=== PATIENT | male | born 1960 | race Caucasian/White ===

== ENCOUNTER 2017-01-15 15:06 | Observation (INO) | payer OTHER ==
[~2017-01-15] VITALS: Ht 177.8 cm; Wt 144.2 kg
[~2017-01-15 15:06] MED LIST: ADVAIR 250/501 DISK IH; ATENOLOL50 M1 PO; Aspirin Chewable PO; Bactrim,Septra DS 80 PO; LEVAQUIN750 MG PO; LIDODERM 5% P1 PATCH TD; MOTRIN800 MG PO; MULTI-VIT 55 P1 EACH PO; NAPROXEN500 MG PO; PREVACID30 MG PO; PROVENTIL HFA6.7 GM IH; Prilosec PO; ZESTRIL,PRINIVI10 MG PO; ZITHROMAX Z-PA250 MG PO; ZYRTEC10 M3 PO
[2017-01-15 15:47] LABS: EOSINOPHIL (%) 3.6 % (0-5); EOSINOPHIL COUNT 0.3 K/uL (0-0.3); HEMATOCRIT 41.3 % (38.0-50.0); IMMATURE GRANULOCYTE (%) 0.3 % (0.0-0.7); IMMATURE GRANULOCYTE COUNT 0.2 K/uL; MCH 28.4 PG (29.0-34.0); MCHC 34.4 G/DL (30.0-36.0); MCV 82.6 FL (86-99); MEAN PLAT.VOLUME 10.8 uM^3 (9.0-12.4); MONOCYTE (%) 9.1 % (3-12); MONOCYTE COUNT 0.7 K/uL (0-0.8); NEUTROPHIL (%) 74.1 % (45-76); NEUTROPHIL COUNT 5.8 K/uL (1.8-6.4); PLATELET COUNT 205 K/uL (156-360); RBC DIS.WIDTH-CV 13.9 % (11.8-14.6); RBC DIS.WIDTH-SD 40.6 % (39-53); WHITE BLOOD COUNT 7.8 K/uL (4.1-10.2)
[2017-01-15 15:57] LABS: CHLORIDE 103 mEq/L (99-109); POTASSIUM 4.1 mEq/L (3.7-5.4); SODIUM 139 mEq/L (136-147)
[2017-01-15 15:59] LABS: GLUCOSE 112 mg/dL (70-99)
[2017-01-15 16:00] LABS: ANION GAP 13 MEQ/L (2-14)
[2017-01-15 16:01] LABS: TOTAL BILIRUBIN 0.2 mg/dL (0.0-1.0)
[2017-01-15 16:02] LABS: ALKALINE PHOSPHATASE 69 IU/L (3-129)
[2017-01-15 16:03] LABS: GFR ESTIMATE (CALCULATED) 56 mL/min/
[2017-01-15 16:04] LABS: UREA NITROGEN (BUN) 30 mg/dL (9-23)
[2017-01-15 16:06] LABS: LIPASE 42 U/L (1.0-51.0)
[2017-01-15 18:15] LABS: ADD MIUA? YES; BILIRUBIN NEGATIVE; BLOOD SMALL; COLOR YELLOW ((YELLOW)); GLUCOSE (STRIP) NEGATIVE; KETONES NEGATIVE; LEUKOCYTES NEGATIVE; NITRITE NEGATIVE; PROTEIN (STRIP) NEGATIVE; SPECIFIC GRAVITY 1.016 (1.000-1.030); UROBILINOGEN 0.2 MG/DL (0.2-1.0)
[2017-01-15 18:33] LABS: BACTERIA NONE SEEN /HPF; EPITHELIAL CELLS NONE SEEN /HPF; MUCUS TRACE /LPF; WHITE BLOOD CELLS 0-5 /HPF (0-5)
[2017-01-15] MEDS ORDERED: LISINOPRIL20 MG PO (19:00)
[2017-01-15 19:01] LABS: D-DIMER ELISA 1.59 mg/L FEU (< 0.57)
[2017-01-15] MEDS ORDERED: ATORVASTATIN CA20 MG PO (19:01)
[2017-01-15] MEDS ORDERED: ASPIR 8181 M1 PO (19:01)
[2017-01-15] MEDS ORDERED: PANTOPRAZOLE SO40 MG PO (19:01)
[2017-01-15] MEDS ORDERED: FIBER PO (19:02)
[2017-01-15] MEDS ORDERED: MULTI VITAMIN1 EACH PO (19:03)
[2017-01-15 20:43] LABS: CHLORIDE 107 mEq/L (99-109); POTASSIUM 4.3 mEq/L (3.7-5.4); SODIUM 140 mEq/L (136-147)
[2017-01-15 20:45] LABS: GLUCOSE 94 mg/dL (70-99)
[2017-01-15 20:47] LABS: ANION GAP 11 MEQ/L (2-14)
[2017-01-15 20:49] LABS: GFR ESTIMATE (CALCULATED) > 59 mL/min/
[2017-01-15 20:50] LABS: UREA NITROGEN (BUN) 26 mg/dL (9-23)
[2017-01-15 20:52] LABS: CREATINE KINASE 431 IU/L (1-294)
[2017-01-15] MEDS ORDERED: FIBER THERAPY500 MG PO (23:00)
[2017-01-15] MEDS ORDERED: LIDODERM 5% P1 PATCH TD (23:01)
[2017-01-15 23:47] VITALS: BP 123/63
[2017-01-16 01:09] LABS: TROP-I INTERPRETATION NEGATIVE; TROPONIN-I < 0.01 ng/mL (0.0-0.30)
[2017-01-16 05:56] LABS: TROP-I INTERPRETATION NEGATIVE; TROPONIN-I < 0.01 ng/mL (0.0-0.30)
[2017-01-16 06:15] VITALS: BP 119/69
[2017-01-16 06:18] LABS: HEMATOCRIT 41.3 % (38.0-50.0); MCH 29.3 PG (29.0-34.0); MCHC 34.1 G/DL (30.0-36.0); MCV 85.9 FL (86-99); MEAN PLAT.VOLUME 11.1 uM^3 (9.0-12.4); PLATELET COUNT 173 K/uL (156-360); RBC DIS.WIDTH-CV 14.2 % (11.8-14.6); RBC DIS.WIDTH-SD 44.2 % (39-53); RED BLOOD COUNT 4.81 M/uL (4.00-5.50)
[2017-01-16 06:20] LABS: WHITE BLOOD COUNT 4.8 K/uL (4.1-10.2)
[2017-01-16 07:43] LABS: ALKALINE PHOSPHATASE 59 IU/L (3-129); ANION GAP 7 MEQ/L (2-14); CHLORIDE 102 MEQ/L (99-109); GFR ESTIMATE (CALCULATED) > 59 mL/min/; POTASSIUM 4.4 MEQ/L (3.7-5.4); SAMPLE HEMOLYSIS CHECK 0; SAMPLE ICTERIC CHECK 0; SAMPLE LIPEMIA CHECK 0; SODIUM 137 MEQ/L (136-147); TOTAL BILIRUBIN 0.4 MG/DL (0.0-1.0); UREA NITROGEN (BUN) 17 mg/dL (9-23)
[2017-01-16 07:52] VITALS: BP 124/66
[2017-01-16 07:59] LABS: GLUCOSE 165 mg/dL (70-99)
[2017-01-16 10:53] LABS: CK-MB 2.8 ng/mL (0.0-4.9)
[2017-01-16 11:05] VITALS: BP 125/70
[2017-01-16 11:11] LABS: CREATINE KINASE 386 IU/L (1-294); TOTAL CK 386 IU/L (1-294)
[2017-01-16 12:49] LABS: TROP-I INTERPRETATION NEGATIVE; TROPONIN-I < 0.01 ng/mL (0.0-0.30)
[2017-01-16] MEDS ORDERED: PREDNISONE20 MG PO (15:35)
[2017-01-16] MEDS ORDERED: DOXYCYCLINE HY100 M3 PO (15:35)
== END 2017-01-16 16:05 | disposition home or self-care (01) ==
LOC: EME → EDBD 15:06 → EME 15:06 → EDOF 22:43 → 5WEST 23:32
PROVIDERS: Emergency Medicine; Internal Medicine; Physician Assistant
DX: J44.1 Chronic obstructive pulmonary disease with (acute) exacerbation (principal); J45.909 Unspecified asthma, uncomplicated; K21.9 Gastro-esophageal reflux disease without esophagitis; I12.9 Hypertensive chronic kidney disease with stage 1 through stage 4 chronic kidney disease, or unspecified chronic kidney disease; G47.33 Obstructive sleep apnea (adult) (pediatric); N18.3 Chronic kidney disease, stage 3 (moderate); E78.5 Hyperlipidemia, unspecified
CPT/HCPCS: 71020; 71275; 74176; 74177; 80048 91; 80053; 81003; 82550; 82553; 83605; 83690; 84484; 85025; 85027; 85379; 87040; 93005; 94640; 94640 76; 94760; 94799; 99202; 99281; 99285; G0378; J1644; J2930; J7030

== ENCOUNTER 2017-07-16 13:13 | Observation (INO) | payer OTHER ==
[~2017-07-16] VITALS: Ht 177.8 cm; Wt 140.6 kg
[~2017-07-16 13:13] MED LIST changes: -ADVAIR 250/501 DISK IH; +ADVAIR 500/501 DISK IH; +ASPIR 8181 M1 PO; +ATORVASTATIN CA20 MG PO; +DOXYCYCLINE HY100 M3 PO; +FIBER PO; +FIBER THERAPY500 MG PO; +LISINOPRIL20 MG PO; +MULTI VITAMIN1 EACH PO; +PANTOPRAZOLE SO40 MG PO; +PREDNISONE20 MG PO
[2017-07-16 14:15] LABS: HEMATOCRIT 42.8 % (38.0-50.0); MCH 28.5 PG (29.0-34.0); MCHC 34.1 G/DL (30.0-36.0); MCV 83.6 FL (86-99); MEAN PLAT.VOLUME 10.5 uM^3 (9.0-12.4); PLATELET COUNT 241 K/uL (156-360); RBC DIS.WIDTH-CV 13.2 % (11.8-14.6); RBC DIS.WIDTH-SD 40.4 % (39-53); RED BLOOD COUNT 5.12 M/uL (4.00-5.50); WHITE BLOOD COUNT 11.2 K/uL (4.1-10.2)
[2017-07-16 14:26] LABS: CHLORIDE 104 mEq/L (99-109); POTASSIUM 4.4 mEq/L (3.7-5.4); SODIUM 139 mEq/L (136-147)
[2017-07-16 14:28] LABS: GLUCOSE 92 mg/dL (70-99)
[2017-07-16 14:29] LABS: ANION GAP 12 MEQ/L (2-14)
[2017-07-16 14:32] LABS: GFR ESTIMATE (CALCULATED) 42 mL/min/; UREA NITROGEN (BUN) 19 mg/dL (9-23)
[2017-07-16 14:39] LABS: TROP-I INTERPRETATION NEGATIVE; TROPONIN-I < 0.01 ng/mL (0.0-0.30)
[2017-07-16 14:56] LABS: D-DIMER ELISA < 150.00 ng/mLDDU (<230)
[2017-07-16 15:02] LABS: TOTAL BILIRUBIN 0.5 mg/dL (0.0-1.0)
[2017-07-16 15:03] LABS: ALKALINE PHOSPHATASE 77 IU/L (3-129)
[2017-07-16 15:05] LABS: DIRECT BILIRUBIN 0.2 mg/dL (0.0-0.3)
[2017-07-16] MEDS ORDERED: ONE DAILY FOR1 EAC2 PO (16:47)
[2017-07-16] MEDS ORDERED: VENTOLIN HFA18 GM IH (16:48)
[2017-07-16] MEDS ORDERED: INCRUSE ELLI62.5 MCG IH (16:49)
[2017-07-16 18:16] VITALS: BP 118/60
[2017-07-16 18:24] LABS: TROP-I INTERPRETATION NEGATIVE; TROPONIN-I < 0.01 ng/mL (0.0-0.30)
[2017-07-16 22:19] LABS: TROP-I INTERPRETATION NEGATIVE; TROPONIN-I < 0.01 ng/mL (0.0-0.30)
[2017-07-17 00:39] VITALS: BP 117/59
[2017-07-17 04:42] VITALS: BP 101/56
[2017-07-17 05:29] LABS: EOSINOPHIL (%) 2.8 % (0-5); EOSINOPHIL COUNT 0.2 K/uL (0-0.3); HEMATOCRIT 38.6 % (38.0-50.0); IMMATURE GRANULOCYTE (%) 0.3 % (0.0-0.7); INSTRUMENT ABS NEUTROPHIL CT 3.9 K/uL; LYMPHOCYTE COUNT 1.8 K/uL (1.0-2.8); MCH 29.6 PG (29.0-34.0); MCHC 34.2 G/DL (30.0-36.0); MCV 86.5 FL (86-99); MEAN PLAT.VOLUME 10.5 uM^3 (9.0-12.4); MONOCYTE (%) 8.3 % (3-12); MONOCYTE COUNT 0.5 K/uL (0-0.8); NEUTROPHIL (%) 60.6 % (45-76); NEUTROPHIL COUNT 3.9 K/uL (1.8-6.4); PLATELET COUNT 170 K/uL (156-360); RBC DIS.WIDTH-CV 13.6 % (11.8-14.6); RED BLOOD COUNT 4.46 M/uL (4.00-5.50); WHITE BLOOD COUNT 6.4 K/uL (4.1-10.2)
[2017-07-17 05:55] LABS: ANION GAP 8 MEQ/L (2-14); CHLORIDE 104 MEQ/L (99-109); GFR ESTIMATE (CALCULATED) > 59 mL/min/; GLUCOSE 113 mg/dL (70-99); POTASSIUM 4.3 MEQ/L (3.7-5.4); SAMPLE HEMOLYSIS CHECK 0; SAMPLE ICTERIC CHECK 0; SAMPLE LIPEMIA CHECK 0; SODIUM 141 MEQ/L (136-147); UREA NITROGEN (BUN) 16 mg/dL (9-23)
[2017-07-17 07:25] VITALS: BP 116/76
[2017-07-17 11:58] VITALS: BP 113/61
[2017-07-17] MEDS ORDERED: NITROSTAT0.4 MG SL (15:12)
== END 2017-07-17 15:40 | disposition home or self-care (01) ==
LOC: EME 13:13 → EDOF 16:01 → ENRESERV 16:03 → 5WEST 17:46
PROVIDERS: Hospitalist; Nurse Practitioner Family
DX: R07.89 Other chest pain (principal); R55 Syncope and collapse; N17.9 Acute kidney failure, unspecified; E86.0 Dehydration; I95.9 Hypotension, unspecified; I12.9 Hypertensive chronic kidney disease with stage 1 through stage 4 chronic kidney disease, or unspecified chronic kidney disease; N18.9 Chronic kidney disease, unspecified; E78.5 Hyperlipidemia, unspecified; K21.9 Gastro-esophageal reflux disease without esophagitis; J45.909 Unspecified asthma, uncomplicated; G47.33 Obstructive sleep apnea (adult) (pediatric); Z91.018 Allergy to other foods
CPT/HCPCS: 71020; 80048; 80076; 83605; 84484; 85025; 85027; 85379; 87040; 93005; 94640; 99202; 99281; 99285; G0378; J1644; J7030